=== PATIENT | female | born 1990 | race Caucasian/White ===

== ENCOUNTER → 2019-08-03 | Outpatient (CLI) | payer OTHER ==
[~2019-08-03] MED LIST: CEPH500 PO
[2019-08-04 06:33] LABS: Candida species (DNA Probe) Negative (NEGATIVE); G. vaginalis (DNA Probe) Positive (NEGATIVE); T. vaginalis (DNA Probe) Negative (NEGATIVE)
== END | disposition home or self-care (01) ==
LOC: LAB SHORT 10:15 → LAB 10:15
PROVIDERS: Advanced Practice Midwife
DX: Z11.3 Encounter for screening for infections with a predominantly sexual mode of transmission (principal); N89.8 Other specified noninflammatory disorders of vagina
CPT/HCPCS: 87480; 87510; 87660

== ENCOUNTER → 2019-12-15 | Outpatient (CLI) | payer OTHER ==
[2019-12-18 14:16] LABS: CHLAMYDIA TRACHOMATIS, NAA Negative (Negative); HPV 16 Negative (Negative); HPV 18 Negative (Negative); HPV OTHER HR TYPES Negative (Negative); NEISSERIA GONORRHOEAE, NAA Negative (Negative)
== END | disposition home or self-care (01) ==
LOC: LAB 14:18 → LAB SHORT 14:18
PROVIDERS: Advanced Practice Midwife
DX: Z01.419 Encounter for gynecological examination (general) (routine) without abnormal findings (principal)
CPT/HCPCS: 87491; 87591; 87624; G0123

== ENCOUNTER 2020-06-08 16:45 | Inpatient (IN) | payer OTHER ==
[~2020-06-08] VITALS: Ht 167.6 cm; Wt 81.0 kg
[~2020-06-08 16:45] MED LIST changes: -ACET500; -NEWMAN'S OINTMENT TOP; -PRENATAL TABLE1 EAC2; -PYRI100 PO
[2020-06-08] MEDS ORDERED: ACET500 (18:26)
[2020-06-08] MEDS ORDERED: PRENATAL TABLE1 EAC2 (18:26)
[2020-06-08] MEDS ORDERED: PYRI100 PO (18:27)
[2020-06-08 18:44] LABS: BASOPHILS ABSOLUTE AUTO 0.02 K/mm3 (0.00-0.23); BASOPHILS PERCENT AUTO 0 % (0-2); EOSINOPHILS ABSOLUTE AUTO 0.08 K/mm3 (0.00-0.68); EOSINOPHILS PERCENT AUTO 1 % (0-6); Hematocrit 30.8 % (33.0-51.0); Hemoglobin 10.4 g/dL (11.5-16.0); IMMATURE GRAN ABSOLUTE AUTO 0.07 K/mm3 (0.00-0.10); IMMATURE GRAN PERCENT AUTO 1 % (0-1); LYMPHOCYTES ABSOLUTE AUTO 1.59 K/mm3 (0.84-5.20); LYMPHOCYTES PERCENT AUTO 16 % (21-46); MONOCYTES PERCENT AUTO 6 % (4-13); Mean Corpuscular HGB 29.2 pg (26.0-34.0); Mean Corpuscular HGB Conc 33.8 g/dL (31.5-36.5); Mean Corpuscular Volume 87 fL (80-100); Mean Platelet Volume 8.7 fL (9.1-12.4); NEUTROPHILS ABSOLUTE AUTO 7.82 K/mm3 (1.96-9.15); NEUTROPHILS PERCENT AUTO 77 % (41-73); Platelet Count 251 K/mm3 (150-400); RDW Coefficient Variation 12.2 % (11.7-14.2); RDW Standard Deviation 38.5 fL (35.1-46.3); Red Blood Cell Count 3.56 M/mm3 (3.80-5.20); White Blood Cell Count 10.18 K/mm3 (4.00-11.30)
[2020-06-08 19:16] LABS: Influenza A, PCR Negative (NEGATIVE); Influenza B, PCR Negative (NEGATIVE); Resp Syncytial Virus, PCR Negative (NEGATIVE); SARS-Cov-2 (COVID-19) PCR, MMC Negative (NEGATIVE)
--- NOTE | 2020-06-08 20:45 | NUR ---
PT VERY ANXIOUS ABOUT BEING AT [facility]. PT DELIVERED HER FIRST BABY STILLBORN HERE AND ALL OF HER OTHER CHILDREN AT A DIFFERENT HOSPITAL. RN ENCOURAGED PT TO USE CALMING TECHNIQUES WITH BREATHING, MUSIC, AND JACUZZI TUB. PT DOES NOT CURRENLTY HAVE A SUPPORT PERSON HERE. RN ENCOURAGED PT TO LET STAFF KNOW IF ANYTHING MAKES HER ANXIETY WORSE OR BETTER, IF THERE IS ANYTHING WE CAN DO TO HELP HER BE MORE COMFORTABLE AND RELAXED.
--- NOTE | 2020-06-08 21:11 | NUR ---
PT APPEARS TO BE SLEEPING WHEN RN ENTERED FOR ROUNDING, PLAN TO LET PT REST MUCH POSSIBLE.
--- NOTE | 2020-06-09 01:00 | NUR ---
PT APPEARS TO BE SLEEPING. DOWN IN BED, EYES CLOSED, LIGHTS OFF IN ROOM
--- NOTE | 2020-06-09 07:14 | NUR ---
DISCHARGE DR QUEZADA AT BEDSIDE. PT SLEPT MOST OF THE NIGHT WITH OCCASSIONAL CONTRACTIONS. VE UNCHANGED AND DISCHARGED HOME. PT TO KEEP REGULARLY SCHEDULED APPOINTMENTS IN OFFICE. LABOR PRECAUTIONS DISCUSSED.
== END 2020-06-09 07:35 | disposition home or self-care (01) | DRG 833 ==
LOC: OBS 16:45 → BC 16:45 → OBS 18:04 → BC 18:05
PROVIDERS: ADMIT Obstetrics & Gynecology
DX: O60.03 Preterm labor without delivery, third trimester (principal); Z3A.36 36 weeks gestation of pregnancy; Z20.828 Contact with and (suspected) exposure to other viral communicable diseases
CPT/HCPCS: 0241U; 36415; 85025; 86850; 86900; 86901; A9270; J0290; J7120

== ENCOUNTER → 2020-06-08 | Outpatient (CLI) | payer OTHER ==
[~2020-06-08] MED LIST changes: +ACET500; +NEWMAN'S OINTMENT TOP; +PRENATAL TABLE1 EAC2; +PYRI100 PO
== END | disposition home or self-care (01) ==
LOC: PLD 18:52 → LAB SHORT 18:52
DX: O09.93 Supervision of high risk pregnancy, unspecified, third trimester (principal)
CPT/HCPCS: 87081; 87150

== ENCOUNTER 2020-06-20 01:08 | Inpatient (IN) | payer OTHER ==
[~2020-06-20] VITALS: Ht 167.6 cm; Wt 81.0 kg
[~2020-06-20 01:08] MED LIST changes: +ACET500; +PRENATAL TABLE1 EAC2; +PYRI100 PO
[2020-06-20 01:41] LABS: BASOPHILS ABSOLUTE AUTO 0.03 K/mm3 (0.00-0.23); BASOPHILS PERCENT AUTO 0 % (0-2); EOSINOPHILS PERCENT AUTO 1 % (0-6); Hematocrit 32.6 % (33.0-51.0); Hemoglobin 10.8 g/dL (11.5-16.0); IMMATURE GRAN ABSOLUTE AUTO 0.07 K/mm3 (0.00-0.10); IMMATURE GRAN PERCENT AUTO 1 % (0-1); LYMPHOCYTES ABSOLUTE AUTO 1.75 K/mm3 (0.84-5.20); LYMPHOCYTES PERCENT AUTO 21 % (21-46); MONOCYTES ABSOLUTE AUTO 0.56 K/mm3 (0.16-1.47); MONOCYTES PERCENT AUTO 7 % (4-13); Mean Corpuscular HGB 28.9 pg (26.0-34.0); Mean Corpuscular HGB Conc 33.1 g/dL (31.5-36.5); Mean Corpuscular Volume 87 fL (80-100); Mean Platelet Volume 8.8 fL (9.1-12.4); NEUTROPHILS ABSOLUTE AUTO 5.87 K/mm3 (1.96-9.15); NEUTROPHILS PERCENT AUTO 70 % (41-73); Platelet Count 260 K/mm3 (150-400); RDW Coefficient Variation 12.2 % (11.7-14.2); RDW Standard Deviation 38.9 fL (35.1-46.3); Red Blood Cell Count 3.74 M/mm3 (3.80-5.20); White Blood Cell Count 8.38 K/mm3 (4.00-11.30)
[2020-06-20 02:34] LABS: Influenza A, PCR Negative (NEGATIVE); Influenza B, PCR Negative (NEGATIVE); Resp Syncytial Virus, PCR Negative (NEGATIVE); SARS-Cov-2 (COVID-19) PCR, MMC Negative (NEGATIVE)
--- NOTE | 2020-06-20 21:29 | NUR ---
SITTING UP IN BED HOLDING NB READY TO BREAST FEED WILL CALL IF ASSISTANCE IS NEEDED
--- NOTE | 2020-06-21 04:41 | NUR ---
DISCUSSED WITH DAD THE CONCERNS OF MOM CO-SLEEPING WITH BABY DAD VERBALIZED UNDERSTANDING
--- NOTE | 2020-06-21 04:43 | NUR ---
DAD WILL CALL WHEN MOM AND BABY ARE AWAKE FOR VITAL SIGNS
--- NOTE | 2020-06-21 05:59 | NUR ---
PT SLEEPING, AWAKENS EASLIY, STATES SHE IS CRAMPING A LOT OFFERED CRACKERS, JELLO OR SNACK SO PT CAN TAKE PAIN MEDS, PT DECLINES WANTS TO WAIT UNTIL AFTER BREAKFAST.
--- NOTE | 2020-06-21 14:39 | NUR ---
RN/LC ROUNDED TO HELP W/ . PT IS EXPERIENCED MOM. PT DENIES QUESTIONS OR CONCERNS. FURTHER SUPPORT OFFERED IF PT DESIRES.
[2020-06-22] MEDS ORDERED: NEWMAN'S OINTMENT TOP (08:59)
== END 2020-06-22 09:47 | disposition home or self-care (01) | DRG 807 ==
LOC: OBS 01:08 → BC 01:08 → OBS 01:15 → BC 01:17
PROVIDERS: Family Medicine; ADMIT Obstetrics & Gynecology
PROC: 10E0XZZ Delivery of Products of Conception, External Approach (ICD-10-PCS; principal; 2020-06-20)
PROC: 3E0R3BZ Introduction of Anesthetic Agent into Spinal Canal, Percutaneous Approach (ICD-10-PCS; 2020-06-20)
PROC: 00HU33Z Insertion of Infusion Device into Spinal Canal, Percutaneous Approach (ICD-10-PCS; 2020-06-20)
PROC: 10907ZC Drainage of Amniotic Fluid, Therapeutic from Products of Conception, Via Natural or Artificial Opening (ICD-10-PCS; 2020-06-20)
DX: O80 Encounter for full-term uncomplicated delivery (principal); Z37.0 Single live birth; Z3A.38 38 weeks gestation of pregnancy; Z86.59 Personal history of other mental and behavioral disorders; Z20.822 Contact with and (suspected) exposure to COVID-19
CPT/HCPCS: 0241U; 51702; 85025; 86850; 86900; 86901; A9270; J0290; J1885; J2001; J2210; J2590; J3010; J7120

== ENCOUNTER 2020-09-13 13:11 | Day surgery (SDC) | payer OTHER ==
[~2020-09-13] VITALS: Ht 167.6 cm; Wt 70.0 kg
[~2020-09-13 13:11] MED LIST changes: +NEWMAN'S OINTMENT TOP
--- NOTE | 2020-09-13 15:46 | NUR ---
09/13/20 1546 Mina Rivera TRENA AREA, THIGHS PREPPED W/ CHLORAHEXIDINE BY ORSC.KNM ABDOMINAL AREA PREPPED W/ CLORA PREP BY ORSC.DDT BUPIVACAINE 0.5% 30 MLS MIXED W/ 0.15 ML EPI PER ORDER BY RN TO MAKE BUPIVACAINE 0.5% 1:200,[address] QUEZADA
== END 2020-09-13 17:04 | disposition home or self-care (01) ==
LOC: ORSCSDS 13:11
PROVIDERS: Obstetrics & Gynecology
PROC: 0UT74ZZ Resection of Bilateral Fallopian Tubes, Percutaneous Endoscopic Approach (ICD-10-PCS; principal; 2020-09-13 14:30)
DX: Z30.2 Encounter for sterilization (principal)
CPT/HCPCS: 88302; J0171; J1100; J1885; J2405; J2704; J3010; J7120

== ENCOUNTER 2021-12-12 17:35 | Emergency (ER) | payer OTHER ==
[~2021-12-12] VITALS: Ht 167.6 cm; Wt 68.0 kg
[2021-12-12 18:27] LABS: BASOPHILS ABSOLUTE AUTO 0.03 K/mm3 (0.00-0.23); BASOPHILS PERCENT AUTO 1 % (0-2); EOSINOPHILS ABSOLUTE AUTO 0.13 K/mm3 (0.00-0.68); EOSINOPHILS PERCENT AUTO 3 % (0-6); Hemoglobin 11.3 g/dL (11.5-16.0); IMMATURE GRAN ABSOLUTE AUTO 0.01 K/mm3 (0.00-0.10); IMMATURE GRAN PERCENT AUTO 0 % (0-1); LYMPHOCYTES ABSOLUTE AUTO 1.54 K/mm3 (0.84-5.20); LYMPHOCYTES PERCENT AUTO 30 % (21-46); MONOCYTES PERCENT AUTO 6 % (4-13); Mean Corpuscular HGB 29.7 pg (26.0-34.0); Mean Corpuscular HGB Conc 34.2 g/dL (31.5-36.5); Mean Corpuscular Volume 87 fL (80-100); Mean Platelet Volume 9.2 fL (9.1-12.4); NEUTROPHILS ABSOLUTE AUTO 3.07 K/mm3 (1.96-9.15); NEUTROPHILS PERCENT AUTO 60 % (41-73); Platelet Count 275 K/mm3 (150-400); RDW Coefficient Variation 12.1 % (11.7-14.2); RDW Standard Deviation 38.5 fL (35.1-46.3); White Blood Cell Count 5.08 K/mm3 (4.00-11.30)
[2021-12-12 18:41] LABS: Albumin, Blood 3.8 g/dL (3.4-5.0); Albumin/Globulin Ratio 0.9 (0.8-1.8); Bilirubin, Total 0.4 mg/dL (0.1-1.0); Bun/Creatinine Ratio 14.7 (12.0-20.0); Creatinine, Blood 0.61 mg/dL (0.40-1.00); Globulin, Blood 4.1 g/dL (2.2-4.0); Potassium, Blood 3.4 mmol/L (3.5-5.5); Total Protein, Blood 7.9 g/dL (6.4-8.2)
[2021-12-12 22:54] LABS: Hematocrit 30.4 % (33.0-51.0); Hemoglobin 10.6 g/dL (11.5-16.0); Mean Corpuscular HGB 29.9 pg (26.0-34.0); Mean Corpuscular HGB Conc 34.9 g/dL (31.5-36.5); Mean Corpuscular Volume 86 fL (80-100); Mean Platelet Volume 9.1 fL (9.1-12.4); Platelet Count 249 K/mm3 (150-400); RDW Coefficient Variation 12.1 % (11.7-14.2); Red Blood Cell Count 3.54 M/mm3 (3.80-5.20)
== END 2021-12-12 23:28 | disposition home or self-care (01) ==
LOC: ER 17:35
PROVIDERS: Student in an Organized Health Care Education/Training Program
DX: N92.0 Excessive and frequent menstruation with regular cycle (principal); D64.9 Anemia, unspecified; F32.A Depression, unspecified; Z79.899 Other long term (current) drug therapy; Z87.891 Personal history of nicotine dependence; Z88.8 Allergy status to other drugs, medicaments and biological substances
CPT/HCPCS: 36415; 80053; 84703; 85025; 85027; A9270

== ENCOUNTER 2022-10-03 18:02 | Emergency (ER) | payer OTHER ==
[~2022-10-03] VITALS: Ht 167.6 cm; Wt 74.8 kg
[2022-10-03 18:29] VITALS: BP 155/74
== END 2022-10-03 19:40 | disposition home or self-care (01) ==
LOC: ER 18:02
DX: T18.9XXA Foreign body of alimentary tract, part unspecified, initial encounter (principal); Z88.8 Allergy status to other drugs, medicaments and biological substances; Z88.5 Allergy status to narcotic agent; X58.XXXA Exposure to other specified factors, initial encounter
CPT/HCPCS: 70360; 99283-25